=== PATIENT | female | born 2000 | race Hispanic/Latino ===

== ENCOUNTER 2024-03-05 10:16 | Emergency (ER) | payer BC, SELFPAY ==
[2024-03-05 10:18] VITALS: BP 104/71
--- NOTE | 2024-03-05 10:54 | ED.GENMED ---
Addendum entered and electronically signed by Joselin Baldwin MD 03/05/24 15:28:
Chlamydia result noted to be positive. Call placed to patient's pharmacy, prescription for doxycycline and azithromycin ordered. I called patient in the presence of our unit manager who is Icelandic-speaking and explained to her her testing and need
to take antibiotics, that they are at the pharmacy, etc. She expressed understanding of this
Original Note:
History of Present Illness
General
Chief Complaint: Abdominal Symptoms
Source: patient
Time Seen by Provider: 03/05/24 10:34
History of Present Illness
History of Present Illness:
23-year-old female, in a monogamous relationship, no condoms/contraception, trying to get , who states her last menstrual period was in early January. She does not think she is . However, since yesterday she has noted upper abdominal
discomfort associated with nonbloody vomiting and now this morning diarrhea. She reports subjective fevers. The pain is vague, across the upper abdomen without radiation, exacerbating, relieving factors. She denies mid or lower abdominal pain,
back pain, urinary symptoms, headache, dizziness, chest pain, dyspnea. She notes vaginal discharge which is not particularly foul-smelling. Patient incidentally also noted a small amount of bleeding coming from her right ear yesterday which is now
resolved.
Past History
Past History
ED Past Medical History: Asthma
ED Past Surgical History: None
Social History
Tobacco: Former smoker
Alcohol: None
Drug: None
Personal: Single
Living: with family
Phy Exam
Physical Exam
Physical Exam:
GENERAL: Alert , in no apparent distress
EYE: pupils equal and reactive
NECK: Supple, no significant adenopathy.
ENT: o/p clr, mmm.
CARDIAC: Regular rate and rhythm .
LUNGS: Clear breath sounds bilaterally, no acute respiratory distress, no wheezes/rales/rhonchi
ABDOMEN: Soft, mild upper tenderness, no r/g, no cvat
NEUROLOGICAL: Alert and oriented, no focal neuro deficits
SKIN: Warm and dry, skin intact.
MUSCULOSKELETAL: No edema, well perfused.
PSYCH: Normal and appropriate interaction.
Pelvic exam performed with SHERRY Huddleston present, moderate discharge noted, sample sent. Cervix normal in appearance. Patient has vague mild bilateral adnexal tenderness to palpation.
Course
Orders/Labs/Results
Orders:
Orders
03/05/24 10:56
Test Result ONCE
US Abdomen Complete/Upper Urgent
Comment:
Reason For Exam: upper abd pain
03/05/24 11:04
Complete Blood Count/No Diff Urgent
Comprehensive Metabolic Panel Urgent
HCG, Serum Qualitative Screen Urgent
Lipase Urgent
Syphilis/T. pallidum Ab Reflex Urgent
Urinalysis Reflex To Culture Urgent
Date Specimen was Collected: 03/05/24
Time Specimen was Collected: 10:58
Urine Microscopic Reflex Cult Urgent
03/05/24 11:10
0.9% Sodium Chloride 1000 ml [Nss] 1,000 ml IV BOLUS
US Pelvis Only (non-obstetric) Urgent
Comment:
Reason For Exam: pain
03/05/24 11:46
Chlamydia/GC by PCR Urgent
GABI Source: Endo-Cervical
Specimen Description:
Source:: ENDOCERVICAL
Date Specimen was Collected: 03/05/24
Time Specimen was Collected: 11:12
Genital Culture Urgent
GABI Source: Cervix
Specimen Description:
Date Specimen was Collected: 03/05/24
Time Specimen was Collected: 11:12
Trichomonas - Wet Prep Urgent
GABI Source: Vagina
Specimen Description:
Date Specimen was Collected: 03/05/24
Time Specimen was Collected: 11:12
Abnormal Lab Results
03/05/24
11:04
MCV 79.2 L fL
(81.0-99.0)
RDW 17.2 H %
(11.5-14.5)
MPV 10.7 H fL
(7.4-10.4)
Urine Bilirubin 1+ A
(Negative)
Urine Urobilinogen 3+ A
(Neg - 1+)
Leukocyte Esterase Rfl Trace A
(Negative)
Urine Bacteria (Reflex) Few A
(Negative)
03/05/24 11:04
03/05/24 11:04
Vital Signs
Initial and Last Documented VS:
Initial Vital Signs
Temp Pulse Resp BP Pulse Ox
98.4 F 92 16 104/71 98
03/05/24 10:18 03/05/24 10:18 03/05/24 10:18 03/05/24 10:18 03/05/24 10:18
Last Documented Vital Signs
Temp Pulse Resp BP Pulse Ox
98.4 F 90 16 94/53 99
03/05/24 10:18 03/05/24 13:03 03/05/24 13:03 03/05/24 13:03 03/05/24 13:03
*Critical Care Note
Total Time (30-74mins, 75-104mins- exclusive of procedures): Not Applicable
Update Note
Update Note:
Patient presents to the Emergency Department with abdominal pain vomiting diarrhea
Number and Complexity of Problems Addressed at the Encounter
� Chronic conditions affecting care:
� Acute Exacerbation and/or Progression of Chronic Illness:
� Differential Diagnosis includes: But not limited to gastroenteritis, colitis, cholecystitis, etc. etc.
Amount and/or Complexity of Data to be Reviewed and Analyzed
� I performed an independent evaluation of and my interpretation is:
EKG:
CT:
Xrays:
Laboratory Studies: Unremarkable
Other: Ultrasound pelvis and abdomen unremarkable
� Review of other/old records reveals:
� Clinical information was obtained by an independent historian:
� Prescriptions/Medications Considered but not given:
� Further testing considered but not performed:
Risk of Complications and/or Morbidity or Mortality of Patient Management
� Social determinants of health affecting care:
� Discussion with other providers (PCP, Hospitalists, Consultants, etc):
� Escalation of care including admission/observation vs risk of discharge considered: Information obtained via language line given language barrier. Mom left the room during the history in order to ensure privacy.
1:26 PM patient on her phone, smiling, no acute distress. Repeat abdominal exam soft and nontender. Workup here unremarkable. Discussed with patient importance of follow-up and reasons to return the emergency department. Patient is hungry and
would like to eat. She is also requesting a work note. Although no specific etiology noted at this time, I do not suspect in a emergent/surgical cause for patient's symptoms and she will require close observation with understanding regarding
importance of follow-up and/or return to ED.
ED Attending Note
-
Portions of this chart may have been created with voice recognition software.� Occasional wrong word or��sound alike� substitutions may have occurred due to the inherent limitations of voice recognition software.
Discharge Plan
Departure
Patient Disposition: Home (Routine Discharge)
Date of Disposition: 03/05/24
Time of Disposition: 13:24
Patient with high blood pressure during this ER visit?: No
Condition: Good
Discharge Problem:
Abdominal pain
Instructions: Nausea and Vomiting, Adult (DC), Abdominal Pain
Prescriptions:
No Action
cephalexin 500 mg capsule
500 mg PO BID 7 Days Qty: 14 0RF
Referrals:
NONE,* [Family Provider] -
Stand Alone Forms: Return to Work
Activity Restrictions/Additional Instructions:
PLEASE SEE YOUR DOCTOR AND CLOSE FOLLOW-UP. IF YOU DEVELOP RECURRENT PAIN, REPEATED VOMITING, BLEEDING, FEVER, GET WORSE, OR OTHER WORRISOME SIGNS, PLEASE RETURN TO THE ER IMMEDIATELY.
Interventions
Interventions:
*Risk Screen - Suicide Last Done: 03/05/24 10:21
*General Assessment Last Done: 03/05/24 11:58
*Neglect/Abuse Screening Last Done: 03/05/24 10:21
*ED COVID-19 Vaccine History Last Done: 03/05/24 11:58
DK-Okcyst-Pzsgehgugl Assessment Last Done: 03/05/24 11:56
Discharge Date and Time
Print Language: SRI LANKAN
[2024-03-05] MEDS: NSS 1000 IV (11:12)
[2024-03-05 11:28] LABS: Urine Albumin Negative (Neg - Trace); Urine Bilirubin 1+ (Negative); Urine Character Clear (Clear); Urine Color Yellow; Urine Glucose Negative (Negative); Urine Ketone Negative (Negative); Urine Leukocyte Trace (Negative); Urine Nitrite Negative (Negative); Urine Occult Blood Negative (Negative); Urine Specific Gravity 1.005 (<1.030); Urine Urobilinogen 3+ (Neg - 1+)
[2024-03-05 11:31] LABS: Hematocrit 39.2 % (37.0-47.0); Hemoglobin 13.9 g/dL (12.0-16.0); Mean Corp Hgb Conc. 35.5 g/dL (33.0-37.0); Mean Corpuscular Hgb 28.1 pg (27.0-31.0); Mean Corpuscular Volume 79.2 fL (81.0-99.0); Mean Platelet Volume 10.7 fL (7.4-10.4); Platelet Count 251 10^3/uL (130-400); Red Blood Cell Count 4.95 10^6/uL (4.20-5.40); Red Cell Dist. Width 17.2 % (11.5-14.5); White Blood Cell Count 7.5 10^3/uL (4.8-10.8)
[2024-03-05 11:43] LABS: HCG, Serum Qualitative Screen Negative
[2024-03-05 11:44] LABS: Urine Bacteria Few (Negative); Urine Red Blood Cell 0-2 /HPF (0-2); Urine Squamous Cell 21-25 /LPF (Few)
[2024-03-05 11:45] LABS: ALT (SGPT) 11 U/L (0-35); AST (SGOT) 28 U/L (14-36); Albumin 4.5 g/dl (3.5-5.0); Alkaline Phosphatase 82 U/L (38-126); Blood Urea Nitrogen 11 mg/dl (7-17); Calcium 9.4 mg/dl (8.4-10.2); Carbon Dioxide 25 mmol/L (22-30); Chloride 104 mmol/L (98-107); Glucose 94 mg/dl (70-99); Lipase 46 U/L (23-300); Potassium 4.1 mmol/L (3.5-5.1); Sodium 139 mmol/L (135-145); Total Bilirubin 0.9 mg/dl (0.2-1.3); Total Protein 6.9 g/dl (6.3-8.2); eGFR > 60.00
[2024-03-05 13:03] VITALS: BP 94/53
[2024-03-09 15:43] LABS: Syphilis/T. pallidum Ab Reflex Negative (Negative)
== END 2024-03-05 13:30 | disposition home or self-care (01) ==
LOC: EMR 10:16
PROVIDERS: EMERGENCY PHYSICIAN Emergency Medicine
DX: R10.10 Upper abdominal pain, unspecified (principal); R19.7 Diarrhea, unspecified; R50.9 Fever, unspecified; N89.8 Other specified noninflammatory disorders of vagina; A74.9 Chlamydial infection, unspecified; J45.909 Unspecified asthma, uncomplicated; Z87.891 Personal history of nicotine dependence; Z91.018 Allergy to other foods
CPT/HCPCS: 99284; 76700; 76856; 80053; 81003; 81015; 83690; 84703; 85027; 86780; 87070; 87210; 87491; 87591

== ENCOUNTER 2025-07-10 21:34 | Emergency (ER) | payer BC, SELFPAY ==
[2025-07-10 21:37] VITALS: BP 114/79
[2025-07-11 02:51] LABS: HCG, Urine Qualitative Screen Negative
--- NOTE | 2025-07-11 02:59 | ED.GENMED ---
History of Present Illness
General
Chief Complaint: Breast Problem
Source: patient and spouse
Exam Limitations: none
Time Seen by Provider: 07/11/25 01:45
Nursing documentation reviewed up to this point in time: agreed with
History of Present Illness
History of Present Illness:
25-year-old female presenting to the emergency department today with concerns of discomfort to her left breast over the past few months. Denies any discharge denies any redness or warmth no systemic symptoms. Has had irregular menstrual cycles
over the past few months as well.
Past History
Past History
ED Past Medical History: Asthma
ED Past Surgical History: None
Social History
Tobacco: Former smoker
Alcohol: None
Drug: None
Personal: Single
Living: with family
Review of Systems
Review of Systems
Allergies reviewed?: Yes
All Other Systems: ROS reviewed and negative except as documented in HPI and ROS
Phy Exam
Physical Exam
Physical Exam:
GENERAL: Alert , in no apparent distress
EYE: pupils equal and reactive
NECK: Supple, no significant adenopathy.
ENT: o/p clr, mmm.
CARDIAC: Vague discomfort throughout left breast rounding in the left areola no redness or warmth vague tenderness no discrete masses regular rate and rhythm .
LUNGS: Clear breath sounds bilaterally, no acute respiratory distress, no wheezes/rales/rhonchi
ABDOMEN: Soft, without focal tenderness, no r/g, no cvat
NEUROLOGICAL: Alert and oriented, no focal neuro deficits
SKIN: Warm and dry, skin intact.
MUSCULOSKELETAL: No edema, well perfused.
PSYCH: Normal and appropriate interaction.
Course
Orders/Labs/Results
Orders:
Orders
07/11/25 02:14
Test Result ONCE
07/11/25 02:34
Beta Hcg Urine Qualitative Screen [HCG, Urine Qualitative Screen] Urgent
Date Specimen was Collected: 07/11/25
Time Specimen was Collected: 02:31
Vital Signs
Initial and Last Documented VS:
Initial Vital Signs
Temp Pulse Resp BP Pulse Ox
98.6 F 70 16 114/79 99
07/10/25 21:37 07/10/25 21:37 07/10/25 21:37 07/10/25 21:37 07/10/25 21:37
Last Documented Vital Signs
Temp Pulse Resp BP Pulse Ox
98.6 F 70 16 114/79 99
07/10/25 21:37 07/10/25 21:37 07/10/25 21:37 07/10/25 21:37 07/10/25 21:37
MDM/Problems Addressed
MDM/Problems Addressed:
25-year-old female presenting to the emergency department today with concerns of pain to the left breast over the past few months. Vague discomfort on the areola without redness or warmth no signs of infection. She was advised to follow-up closely
with the breast doctor. Return precautions given.
*Pulse Oximetry
SaO2: 99
Oxygen Mode of Delivery: Room air
Patient hypoxic: no (99)
*Critical Care Note
Total Time (30-74mins, 75-104mins- exclusive of procedures): Not Applicable
ED Attending Note
-
Portions of this chart may have been created with voice recognition software.� Occasional wrong word or��sound alike� substitutions may have occurred due to the inherent limitations of voice recognition software.
Discharge Plan
Departure
Patient Disposition: Home (Routine Discharge)
Date of Disposition: 07/11/25
Time of Disposition: 03:00
Patient with high blood pressure during this ER visit?: No
Condition: Good
Covid-19: Not Applicable
Discharge Problem:
Breast pain
Instructions: Common breast problems
Prescriptions:
No Action
cephalexin 500 mg capsule
500 mg PO BID 7 Days Qty: 14 0RF
Referrals:
UNKNOWN - PT DOES,NOT KNOW [Family Provider]
Ayesha Sheehan MD [Active, Surgical] - Follow up in 10 days
Activity Restrictions/Additional Instructions:
You came to the emergency department today with concerns of breast discomfort. Here your reassuring assessment. Please help closely with the breast doctor. Return for any worsening, new or concerning symptoms.
Interventions
Interventions:
*Neglect/Abuse Screening Last Done: 07/10/25 21:37
*Risk Screen - Suicide (C-SSRS) Last Done: 07/10/25 21:37
Discharge Date and Time
Print Language: [email or web address]
== END 2025-07-11 03:10 | disposition home or self-care (01) ==
LOC: EMR 21:34
PROVIDERS: Physician Assistant; EMERGENCY PHYSICIAN Emergency Medicine
DX: N64.4 Mastodynia (principal); J45.909 Unspecified asthma, uncomplicated; Z87.891 Personal history of nicotine dependence
CPT/HCPCS: 99283; 81025